=== PATIENT | male | born 1935 | race Caucasian/White ===

== ENCOUNTER 2019-04-09 08:14 | Day surgery (SDC) | payer OTHER ==
[2019-04-07 16:31] LABS: Absolute Lymphocytes (CBC) 0.7 K/uL (0.7-4.9); Basophils % 0.6 % (0-1.3); Eosinophils % 2.2 % (0-4.4); Hematocrit 41.4 % (39.6-49.0); Lymphocytes % 16.8 % (15.3-44.8); MPV 10.5 fL (7.6-11.3); Monocytes % 12.1 % (3.3-12.3); RBC Red Blood Cell Count 4.42 M/uL (4.33-5.43)
[2019-04-07 16:40] LABS: Potassium 3.7 mmol/L (3.5-5.1)
--- NOTE | 2019-04-07 17:32 | RAD REPORT ---
EXAM DESCRIPTION: RAD - Chest Pa And Lat (2 Views) - 04/07/2019 4:42 pm CLINICAL HISTORY: Preop chest examination, pending left groin hernia repair, history of coronary art emanuel stents, history of colon cancer COMPARISON: October 2013 TECHNIQUE: PA and lateral views of the chest were obtained. FINDINGS: The lungs are clear. No focal lung parenchymal process seen. Interstitial markings are si milar to the comparison study. Heart size is normal and central vasculature is within normal limits. No pleural effusion or pneumothorax seen. No acute bony finding noted. No aortic abnormality. IMPRESSION: No acute cardiopulmonary process. Chest is not significantly different from 2013.
[2019-04-09] MEDS: Ringers Lactate 1,000 ML IV ONE (08:49)
[2019-04-09] MEDS ORDERED: CEFAZOLIN/SWI 1gm 1 GM/10 ML SYR ONE (08:53)
[2019-04-09] MEDS ORDERED: PROPOFOL 200 MG/20 ML VIAL IV ONE (10:09)
[2019-04-09] MEDS ORDERED: FENTANYL CITR 100 MCG/2 ML ONE (10:09)
[2019-04-09] MEDS ORDERED: LIDOCAINE 2% MPF 5 ML VIAL ONE (10:10)
[2019-04-09] MEDS ORDERED: dexAMETHasone 10 MG/ML VIAL ONE (10:10)
[2019-04-09] MEDS ORDERED: ROCURONIUM 50 MG/5 ML VIAL IV ONE (10:11)
[2019-04-09] MEDS ORDERED: GLYCOPYRROLATE 0.2 MG/ML SYR ONE (11:02)
[2019-04-09] MEDS ORDERED: KETOROLAC 30 MG/ML INJ ONE (11:34)
--- NOTE | 2019-04-09 11:36 | P.BOP ---
Preoperative diagnosis: reduciible tender left inguinal hernia Postoperative diagnosis: same Primary procedure: open repair of reducible tender left inguinal hernia with mesh Full Service Supervisor: GAMALIEL URIBE (DAIRY MANAGER) Estimated blood loss: <10cc Specimen: hernia sac Findings: indirect inguinal hernia Anesthesia: General Complications: None Transferred to: Recovery Room Condition: Good
[2019-04-09] MEDS ORDERED: Ringers Lactate 1,000 ML IV ONE (12:37)
--- NOTE | 2019-04-11 02:24 | OP ---
Date of Procedure: 04/09/2019 Surgeon: Sumeet Slade MD Vice President Consulting Services: DANITZA Coyle. Preoperative Diagnosis: Reducible tender left inguinal hernia. Postoperative Diagnosis: Reducible tender left inguinal hernia. Procedures: Open repair of reducible tender left inguinal hernia with mesh. Estimated Blood Loss: Less than 10 mL. Specimens: Hernia sac. Findings: Indirect inguinal hernia. Anesthesia: General plus local. Indications: This is a case of a male, who comes to us with a tender left inguinal hernia. The bene fits, alternatives, and risks of open repair of a tender inguinal hernia were fully explained to the patient, with the use of mesh which include, but not limited to infection, bleeding, damage to adjace nt structures as complication, chronic pain, chronic numbness down into the testicles, MA, and even d eath. Patient also understands that this may not relieve the symptoms. He may need more than one jain rgical intervention. He was also explained impression to use mesh in that region. The pros and cons of mesh placement were discussed with the patient in details. He was allowed to ask questions and t jessiey were answered to his satisfaction. After discussing the pros and cons of it, the patient did all ow me to use mesh. The area of concern was marked by me and the patient in the holding room. Description Of Procedure: Patient was brought to the operating room, placed in a position. Anesthes ia was achieved without complication. The left inguinal region was prepped and draped in a sterile f ashion including the abdominal area. The incision was made in that area. Incision was carried down t o the Amparo fascia until we met external oblique aponeurosis. That was opened in the direction of t he fibers to connect to the superficial inguinal ring. Ilioinguinal nerve, iliohypogastric nerve, pr otected behind external oblique aponeurosis. Elijah was placed around the spermatic cord. Cremaste red fibers were opened. Hernia sac was then identified, opened, content reduced, and suture ligated. Mesh plug was placed in the deep inguinal ring secured in place with VersaTack once again protectin g the vas deferens and the rest of the spermatic cord structures. The mesh sheet was placed in the f yakov of the canal securing that to the pubic tubercle, shelving edge of inguinal ligament, transversa lis fascia, and the tail looped around the spermatic cord without strangulation. The area was irriga ana maria. Hemostasis was secured. After that, I proceeded to bring the iliohypogastric nerve back into t he inguinal canal, reconstructed superficial inguinal ring and closed the external oblique aponeurosi s with 2-0 Prolene making sure the nerves are not involving the suture line. Amparo's fascia closed with 3-0 chromic and the skin was approximated. Sponge count and instrument counts were correct. Nghia bowen tolerated the procedure well. Patient was sent to recovery in stable condition. At the end of the case, testicles were in the scrotum. Disposition: Home. Activity: As tolerated. No heavy lifting. Followup: Follow up in my office in 1 week. Call for appointment, [phone]. Keep area dry for 48 h ours, then may shower. Medications: See orders. ADRIANO/ALESSANDRA Voice ID: [id number] Report ID: [id number]
== END 2019-04-09 13:55 | disposition home or self-care (01) ==
LOC: OR 08:14
PROVIDERS: ATTEND Surgery
PROC: 0YU60JZ Supplement Left Inguinal Region with Synthetic Substitute, Open Approach (ICD-10-PCS; principal; 2019-04-09 10:15)
DX: K40.90 Unilateral inguinal hernia, without obstruction or gangrene, not specified as recurrent (principal); I11.9 Hypertensive heart disease without heart failure; N40.0 Benign prostatic hyperplasia without lower urinary tract symptoms; E78.5 Hyperlipidemia, unspecified; I25.10 Atherosclerotic heart disease of native coronary artery without angina pectoris; Z79.82 Long term (current) use of aspirin; Z79.899 Other long term (current) drug therapy; Z95.5 Presence of coronary angioplasty implant and graft
CPT/HCPCS: 49505; 85025; 80048; 36415; 88302; 71046; J2704; J3010; J1100; J0690

== ENCOUNTER 2024-02-04 11:13 | Emergency (ER) | payer OTHER ==
--- OUTSIDE RECORDS SUMMARY | 2024-02-04 11:19 | XMS REPORT | Clinical Summary ---
Author Name Unknown Organization [facility] [place] Address [address] [place] [address] Care Team Providers Care Crew Team Member Name Role Phone Saran Lewis MD Unavailable [phone] Rika Murphy MD Primary Care Provider [phone] Mitchell Parker MD Unavailable [phone] Patrick Mary MD Unavailable [phone] Allergies Active Allergy Reactions Criticality Noted Date Comments Venom-Wasp High 10/27/2014 Swelling and hives Medications Medication Sig Dispensed Refills Start Date End Date Status amLODIPine (NORVASC) 5 mg tablet TAKE 1 TABLET BY MOUTH TWICE A DAY 0 05/06/2022 Active atorvastatin (LIPITOR) 20 mg tablet TAKE 1 TABLET BY MOUTH DAILY IN EVENING WITH MEAL 0 05/27/2022 Active tamsulosin (FLOMAX) 0.4 mg 24 hr capsule TAKE 1 CAPSULE BY MOUTH TWICE A DAY 0 04/09/2022 Active omeprazole (PriLOSEC) 40 MG capsule 1 CAPSULE BY MOUTH DAILY, 30 MINUTES BEFORE BREAKFAST 0 04/09/2022 Active loratadine (CLARITIN) 10 mg tablet Take 1 tablet (10 mg) by mouth daily as needed. 0 Active cyanocobalamin (VITAMIN B-12) 1000 mcg tablet 1 tablet (1,000 mcg). 0 Active ferrous gluconate (FERGON) 324 mg (38 mg elemental iron per tablet) tablet Take 1 tablet (38 mg of iron) by mouth daily with breakfast. 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 30 tablet 11 07/21/2022 Active clindamycin (Cleocin T) 1% lotionIndications:M alignant neoplasm of lower lobe, right bronchus or lung,Rash Apply topically to affected area(s) twice daily. 60 mL 3 10/04/2022 Active Additional Information Patient not taking.Reason: No longer taking, Informant: Self, Reported on 09/27/2023 fluocinonide (LIDEX) 0.05% topical solutionIndications :Malignant neoplasm of lower lobe, right bronchus or lung,Rash Apply topically to affected area(s) twice daily. 60 mL 3 10/04/2022 Active Additional Information Patient not taking.Reason: No longer taking, Informant: Self, Reported on 09/27/2023 cholecalciferol, vitamin D3, 25 mcg (1,000 unit) tablet Take 1 tablet (1,000 Units) by mouth daily. 0 Active UNABLE TO FIND 1 Dose as needed (PT WAS GIVEN MISC. CREAMS X2 FOR SKIN). Med Name: Creams from radiation 0 Active osimertinib (Tagrisso) 80 mg tab tabletIndications:M alignant neoplasm of lower lobe, right bronchus or lung Take 1 tablet (80 mg) by mouth daily. 30 tablet 11 08/06/2023 Active Active Problems Problem Noted Date Diagnosed Date Primary malignant neoplasm of right lower lobe o f lung 05/18/2023 Adenocarcinoma of right lung 07/21/2022 Cancer Staging:Clinical stage from 07/21/2022:Stage IV(cT4, cN2, cM1) - Unsigned Resolved Problems Problem Noted Date Diagnosed Date Resolved Date Neoplasm of right lower lobe of lung 05/18/2023 05/18/2023 Encounters Date Type Department Care Team Description 11/12/2023 3:00 PM PL[facility]ER [facility] Follow-Up MD Ferreira in [place] - Thoracic Medicine [facility] [address] [place] [address] Rika Murphy MD Adenocarcinoma of right lung (Primary Dx); Secondary malignant neoplasm of bone; Malignant neoplasm of lower lobe, right bronchus or lung; Advance directive discussed with patient 11/12/2023 12:00 PM PLANER HAND Ancillary Procedure MD Jhon Stout [address] [place] [address] Rika Murphy MD Malignant neoplasm of lower lobe, right bronchus or lung 11/12/2023 Travel 09/28/2023 3:15 PM PLANER HAND Telemedicine MD Ferreira in [address] [address] Rika Murphy MD Malignant neoplasm of lower lobe, right bronchus or lung (Primary Dx) 08/31/2023 Telephone MD Ferreira in [address] [address] Angelina Robles, YESENIA 08/31/2023 Orders Only MD Ferreira in [address] [address] Rika Murphy MD 08/06/2023 1:00 PM PL[facility]ER HAND Follow-Up MD Ferreira in [address] [address] Rika Murphy MD Malignant neoplasm of lower lobe, right bronchus or lung (Primary Dx) 08/06/2023 8:00 AM PLANER HAND Ancillary Procedure MD Jhon Stout [address] [place] [address] Rika Murphy MD Malignant neoplasm of lower lobe, right bronchus or lung 08/06/2023 Travel 06/20/2023 2:00 PM CDT Nutrition Clinical Nutrition For your Nutrition appointment location directions please call: Rika Murphy MD Martin, Cathy A, RD 06/20/2023 9:00 AM CDT Telemedicine MD Ferreira in [address] [address] Rika Murphy MD Adenocarcinoma of right lung (Primary Dx); Secondary malignant neoplasm of bone; Thrombocytopenia, not otherwise specified 06/20/2023 Documentation MD Jhon Stout - Radiation Oncology [address] [place] [phone] Patrick Mary MD 06/20/2023 Travel 06/19/2023 8:00 AM CDT Clinical Support MD Jhon [place] - Radiation Oncology [address] [place] [phone] Patrick Mary MD 06/19/2023 Travel 06/18/2023 Travel 06/15/2023 Travel 06/14/2023 Travel 06/13/2023 3:00 PM CDT Telemedicine MD Ferreira in [place] - Thoracic Medicine [address] [place] [address] [address] [place] [address] Rika Murphy MD Malignant neoplasm of lower lobe, right bronchus or lung (Primary Dx) 06/13/2023 11:00 AM CDT Nutrition Clinical Nutrition For your Nutrition appointment location directions please call: iRka Murphy MD Martin, Cathy A, SANTOS 06/13/2023 Travel 06/12/2023 8:00 AM CDT Clinical Support MD Jhon Stout - Radiation Oncology [address] [place] [phone] Patrick Mary MD 06/12/2023 Travel 06/11/2023 Travel 06/08/2023 Travel 06/07/2023 Travel 06/06/2023 Travel 06/05/2023 8:00 AM CDT Clinical Support MD Jhon [place] [facility] Radiation Oncology [address] [place] [phone] Patrick Mary MD 06/05/2023 Travel 06/04/2023 Travel 06/01/2023 3:00 PM CDT Telemedicine MD Ferreira in [place] - Thoracic Medicine [address] [place] [address] [address] [place] [address] Rika Murphy MD Thrombocytopenia, not otherwise specified (Primary Dx); Adenocarcinoma of right lung; Secondary malignant neoplasm of bone 06/01/2023 Travel 05/31/2023 Documentation MD Jhon [place] - Radiation Oncology [address] [place] [id number] Patrick Mary MD 05/31/2023 Travel 05/30/2023 Documentation MD Jhon [place] - Radiation Oncology [address] [place] [address] Patrick Mary MD 05/28/2023 6:15 AM CDT - 05/28/2023 11:59 PM CDT Hospital Encounter [facility] [address] [place] [address] [place] [address] Rika Murphy MD Discharge Disposition: Home 2023 2:00 PM CDT Ancillary Procedure MD Ferreira [place] - Radiation Oncology [address] [place] [address] Breanna Cadet PA Wiederhold, Lee R, MD Adenocarcinoma of right lung 2023 1:00 PM CDT Consult MD Ferreira [place] - Radiation Oncology [address] [place] [id number] Patrick Mary MD Adenocarcinoma of right lung; Secondary malignant neoplasm of bone 2023 Documentation MD Jhon [place] - Radiation Oncology [address] [place] [phone] Patrick Mary MD 2023 Documentation MD Jhon [place] - Radiation Oncology [address] [place] [phone] Patrick Mary MD 2023 Travel 05/01/2023 Orders Only MD Jhon [place] - Radiation Oncology [address] [place] [phone] Breanna Cadet PA Adenocarcinoma of right lung (Primary Dx) 04/30/2023 11:00 AM CDT Follow-Up MD Ferreira in [place] - Thoracic Medicine [address] [facility] [address] [place] [address] Rika Murphy MD Adenocarcinoma of right lung (Primary Dx); Secondary malignant neoplasm of bone; Malignant neoplasm of lower lobe, right bronchus or lung 04/30/2023 7:30 AM CDT Ancillary Procedure MD Jhon Stout [address] [facility] [address] [place] [address] Rika Murphy MD Malignant neoplasm of lower lobe, right bronchus or lung 04/30/2023 Travel 04/26/2023 Orders Only MD Ferreira in [place] - Thoracic Medicine [address] [place] [address] [address] [place] [address] Rika Murphy MD 03/21/2023 9:00 AM CDT Telemedicine MD Ferreira in [place] - Thoracic Medicine [address] [place] [address] [address] [place] [address] Rika Murphy MD Malignant neoplasm of lower lobe, right bronchus or lung (Primary Dx) after 02/04/2023 Immunizations Name Administration Dates Next Due Tetanus 09/10/2015 Surgical History Surgery Date Site/Laterality Comments KNEE SURGERY Right COLECTOMY 09/24/2000 - 09/23/2001 HERNIA REPAIR Medical History Medical History Date Comments Hypercholesterolemia Malignant neoplasm of colon 2000 Essential (primary) hypertension Family History Medical History Relation Name Comments Lung cancer Father Uterine cancer Mother Lung cancer Sister Relation Name Status Comments Father Mother Sister Social History Tobacco Use Types Packs/Day Years Used Date Smoking Tobacco: Never Smokeless Tobacco: Never Alcohol Use Standard Drinks/Week Comments Not Currently 0 (1 standard drink = 0.6 oz pur e alcohol) Sex and Gender Information Value Date Recorded Sex Assigned at Male 06/08/2022 2:05 PM CDT Gender Identity Male 06/08/2022 2:05 PM CDT Sexual Orientation Straight 06/13/2022 10 :44 AM CDT Job Start Date Occupation Industry Not on file Not on file Not on file Obstetrics History Last Filed Vital Signs Vital Sign Reading Time Taken Comments Blood Pressure 148/64 11/12/2023 2:39 PM PL[facility] Pulse 76 11/12/2023 2:39 PM PL[facility]ER HAND Temperature 36.4 C (97.5 F) 11/12/2023 2:39 PM CS T Respiratory Rate 18 11/12/2023 2:39 PM PLANER HAND Oxygen Saturation 97% 06/12/2023 8:30 AM CDT Inhaled Oxygen Concentration - - Weight 65.2 kg (143 lb 11.8 oz) 11/12/2023 2:39 PM PLANER HAND Height 171 cm (5' 7.32") 11/12/2023 12: 01 PM PLANER HAND Body Mass Index 22.3 11/12/2023 12:01 PM PLANER HAND Plan of Treatment Upcoming Encounters Date Type Department Care Team Description 02/11/2024 10:00 AM CDT Lab MD J[facility] [place] - [facility] [address] [address] Gregor Corey, MICROSTRATEGY BI DEVELOPER [address] [place] [address] 02/11/2024 11:00 AM CDT Ancillary Procedure MD Jhon Stout [address] [address] Gregor Corey, MICROSTRATEGY BI DEVELOPER [address] [place] [address] 02/11/2024 3:00 PM CDT Follow-Up MD Ferreira in [place] - Thoracic Medicine [address] [facility] [address] [place] [address] Rika Murphy MD [address] [place] [address] Health Maintenance Due Date Last Done Comments COVID-19 Vaccine (3 - Pfizer risk series) 01/04/2021 12/07/2020, 11/16/2020 Influenza Vaccine 05/25/2024 Medical Devices Implanted Type Area Arc Cutter Plasma Arc Device Identifier Shelf Expiration Date Model / Serial / Lot Acs Multilink Zeta Coronary Stent Implanted:Qty: 3 Description:Per DI MRI safet y policy, coronary stents are cleared for all [facility] 1.5T and 3T clinical scanners in Normal Mode. x3 Multi-Link Zeta Coronary Stents Acs Multilink Pixel Coroanry Stent Implanted:Qty: 2 Description:Per DI MRI safet y policy, coronary stents are cleared for all [facility] 1.5T and 3T clinical scanners in Normal Mode. x2 Multi-Link Pixel Coronary Stents Acs Multilink Zeta Coronary Stent Description:Per DI MRI safet y policy, coronary stents are cleared for all [facility] 1.5T and 3T clinical scanners in Normal Mode. x1 Multi-Link Zeta Coronary Stents Cordis Cypher Coronary Stent-01/04/2004 Implanted:2003 (Quantity not on file) / / [id number] Description:Per DI MRI safet y policy, coronary stents are cleared for all [facility] 1.5T and 3T clinical scanners in Normal Mode. Multilink [employer] [place] Chromium Coronary Stent-01/04/2004 Implanted:Qty: 1 on 01/04/2004 REF# [id number] / / [id number] Description:Per DI MRI safet y policy, coronary stents are cleared for all [facility] 1.5T and 3T clinical scanners in Normal Mode. [id number] [employer] [place] Chromium Coronary Stent Tax[employer] 2 Coronary Stent-01/11/2004 Implanted:2003 (Quantity not on file) REF# [id number] / / [id number] Description:Per DI MRI safet y policy, coronary stents are cleared for all [facility] 1.5T and 3T clinical scanners in Normal Mode. x1 [employer] 2 Coronary Stent Procedures Procedure Name Priority Date/Time Associated Diagnosis Comments PETCT F18 FDG (FLUORODEOXYGLUCOSE) WITHOUT CONTRAST Routine 11/12/2023 1:38 PM PLANER HAND Malignant neoplasm of lower lobe, right bronchus or lung .CBC Routine 11/12/2023 11:06 AM PLANER HAND Malignant neoplasm of lower lobe, right bronchus or lung MAGNESIUM LEVEL Routine 11/12/2023 11:06 AM PLANER HAND Malignant neoplasm of lower lobe, right bronchus or lung COMPREHENSIVE METABOLIC PANEL Routine 11/12/2023 11:06 AM PLANER HAND Malignant neoplasm of lower lobe, right bronchus or lung COMPLETE BLOOD COUNT W/ DIFFERENTIAL Routine 11/12/2023 11:06 AM PLANER HAND Malignant neoplasm of lower lobe, right bronchus or lung PETCT SUBSEQUENT TREATMENT STRATEGY Routine 08/06/2023 8:25 AM PLANER HAND Malignant neoplasm of lower lobe, right bronchus or lung .CBC Routine 08/06/2023 7:00 AM PLANER HAND Malignant neoplasm of lower lobe, right bronchus or lung MAGNESIUM LEVEL Routine 08/06/2023 7:00 AM PLANER HAND Malignant neoplasm of lower lobe, right bronchus or lung COMPREHENSIVE METABOLIC PANEL Routine 08/06/2023 7:00 AM PLANER HAND Malignant neoplasm of lower lobe, right bronchus or lung COMPLETE BLOOD COUNT W/ DIFFERENTIAL Routine 08/06/2023 7:00 AM PLANER HAND Malignant neoplasm of lower lobe, right bronchus or lung FRACTIONATED BILIRUBIN Routine 7:07 AM CDT Adenocarcinoma of right lung Secondary malignant neoplasm of bone Thrombocytopenia, not otherwise specified TOTAL PROTEIN Routine 06/20/2023 7:07 AM CDT Adenocarcinoma of right lung Secondary malignant neoplasm of bone Thrombocytopenia, not otherwise specified ASPARTATE AMINOTRANSFERASE Routine 06/20/2023 7:07 AM CDT Adenocarcinoma of right lung Secondary malignant neoplasm of bone Thrombocytopenia, not otherwise specified ALANINE AMINOTRANSFERASE Routine 7:07 AM CDT Adenocarcinoma of right lung Secondary malignant neoplasm of bone Thrombocytopenia, not otherwise specified ALKALINE PHOSPHATASE Routine 06/20/2023 7:07 AM CDT Adenocarcinoma of right lung Secondary malignant neoplasm of bone Thrombocytopenia, not otherwise specified ALBUMIN LEVEL Routine 06/20/2023 7:07 AM CDT Adenocarcinoma of right lung Secondary malignant neoplasm of bone Thrombocytopenia, not otherwise specified CALCIUM LEVEL Routine 06/20/2023 7:07 AM CDT Adenocarcinoma of right lung Secondary malignant neoplasm of bone Thrombocytopenia, not otherwise specified .GLOMERULAR FILTRATION RATE Routine 06/20/2023 7:07 AM CDT Adenocarcinoma of right lung Secondary malignant neoplasm of bone Thrombocytopenia, not otherwise specified SERUM CREATININE Routine 06/20/2023 7:07 AM CDT Adenocarcinoma of right lung Secondary malignant neoplasm of bone Thrombocytopenia, not otherwise specified ELECTROLYTE PANEL Routine 06/20/2023 7:0 7 AM CDT Adenocarcinoma of right lung Secondary malignant neoplasm of bone Thrombocytopenia, not otherwise specified BLOOD UREA NITROGEN Routine 06/20/2023 7 :07 AM CDT Adenocarcinoma of right lung Secondary malignant neoplasm of bone Thrombocytopenia, not otherwise specified GLUCOSE LEVEL Routine 06/20/2023 7:07 AM CDT Adenocarcinoma of right lung Secondary malignant neoplasm of bone Thrombocytopenia, not otherwise specified DIFFERENTIAL Routine 06/20/2023 7:07 AM CDT Adenocarcinoma of right lung Secondary malignant neoplasm of bone Thrombocytopenia, not otherwise specified .CBC Routine 06/20/2023 7:07 AM CDT Adenocarcinoma of right lung Secondary malignant neoplasm of bone Thrombocytopenia, not otherwise specified MAGNESIUM LEVEL Routine 06/20/2023 7:07 AM CDT Adenocarcinoma of right lung Secondary malignant neoplasm of bone Thrombocytopenia, not otherwise specified COMPREHENSIVE METABOLIC PANEL Routine 06/20/2023 7:07 AM CDT Adenocarcinoma of right lung Secondary malignant neoplasm of bone Thrombocytopenia, not otherwise specified COMPLETE BLOOD COUNT W/ DIFFERENTIAL Routine 06/20/2023 7:07 AM CDT Adenocarcinoma of right lung Secondary malignant neoplasm of bone Thrombocytopenia, not otherwise specified FRACTIONATED BILIRUBIN Routine 8:16 AM CDT Adenocarcinoma of right lung Secondary malignant neoplasm of bone TOTAL PROTEIN Routine 06/01/2023 8:16 AM CDT Adenocarcinoma of right lung Secondary malignant neoplasm of bone ASPARTATE AMINOTRANSFERASE Routine 06/01/2023 8:16 AM CDT Adenocarcinoma of right lung Secondary malignant neoplasm of bone ALANINE AMINOTRANSFERASE Routine 8:16 AM CDT Adenocarcinoma of right lung Secondary malignant neoplasm of bone ALKALINE PHOSPHATASE Routine 06/01/2023 8:16 AM CDT Adenocarcinoma of right lung Secondary malignant neoplasm of bone ALBUMIN LEVEL Routine 06/01/2023 8:16 AM CDT Adenocarcinoma of right lung Secondary malignant neoplasm of bone CALCIUM LEVEL Routine 06/01/2023 8:16 AM CDT Adenocarcinoma of right lung Secondary malignant neoplasm of bone .GLOMERULAR FILTRATION RATE Routine 06/01/2023 8:16 AM CDT Adenocarcinoma of right lung Secondary malignant neoplasm of bone SERUM CREATININE Routine 06/01/2023 8:16 AM CDT Adenocarcinoma of right lung Secondary malignant neoplasm of bone ELECTROLYTE PANEL Routine 06/01/2023 8:1 6 AM CDT Adenocarcinoma of right lung Secondary malignant neoplasm of bone BLOOD UREA NITROGEN Routine 06/01/2023 8 :16 AM CDT Adenocarcinoma of right lung Secondary malignant neoplasm of bone GLUCOSE LEVEL Routine 06/01/2023 8:16 AM CDT Adenocarcinoma of right lung Secondary malignant neoplasm of bone DIFFERENTIAL Routine 06/01/2023 8:16 AM CDT Adenocarcinoma of right lung Secondary malignant neoplasm of bone .CBC Routine 06/01/2023 8:16 AM CDT Adenocarcinoma of right lung Secondary malignant neoplasm of bone MAGNESIUM LEVEL Routine 06/01/2023 8:16 AM CDT Adenocarcinoma of right lung Secondary malignant neoplasm of bone COMPREHENSIVE METABOLIC PANEL Routine 06/01/2023 8:16 AM CDT Adenocarcinoma of right lung Secondary malignant neoplasm of bone COMPLETE BLOOD COUNT W/ DIFFERENTIAL Routine 06/01/2023 8:16 AM CDT Adenocarcinoma of right lung Secondary malignant neoplasm of bone HP LB LIQUID BIOPSY PANEL V1 INTERPRETATION AND REPORT STAT 04/30/2023 11:38 AM CDT PETCT SUBSEQUENT TREATMENT STRATEGY Routine 04/30/2023 8:40 AM CDT Malignant neoplasm of lower lobe, right bronchus or lung FRACTIONATED BILIRUBIN Routine 7:02 AM CDT Malignant neoplasm of lower lobe, right bronchus or lung TOTAL PROTEIN Routine 04/30/2023 7:02 AM CDT Malignant neoplasm of lower lobe, right bronchus or lung ASPARTATE AMINOTRANSFERASE Routine 04/30/2023 7:02 AM CDT Malignant neoplasm of lower lobe, right bronchus or lung ALANINE AMINOTRANSFERASE Routine 7:02 AM CDT Malignant neoplasm of lower lobe, right bronchus or lung ALKALINE PHOSPHATASE Routine 04/30/2023 7:02 AM CDT Malignant neoplasm of lower lobe, right bronchus or lung ALBUMIN LEVEL Routine 04/30/2023 7:02 AM CDT Malignant neoplasm of lower lobe, right bronchus or lung CALCIUM LEVEL Routine 04/30/2023 7:02 AM CDT Malignant neoplasm of lower lobe, right bronchus or lung .GLOMERULAR FILTRATION RATE Routine 04/30/2023 7:02 AM CDT Malignant neoplasm of lower lobe, right bronchus or lung SERUM CREATININE Routine 04/30/2023 7:02 AM CDT Malignant neoplasm of lower lobe, right bronchus or lung ELECTROLYTE PANEL Routine 04/30/2023 7:0 2 AM CDT Malignant neoplasm of lower lobe, right bronchus or lung BLOOD UREA NITROGEN Routine 04/30/2023 7 :02 AM CDT Malignant neoplasm of lower lobe, right bronchus or lung GLUCOSE LEVEL Routine 04/30/2023 7:02 AM CDT Malignant neoplasm of lower lobe, right bronchus or lung DIFFERENTIAL Routine 04/30/2023 7:02 AM CDT Malignant neoplasm of lower lobe, right bronchus or lung .CBC Routine 04/30/2023 7:02 AM CDT Malignant neoplasm of lower lobe, right bronchus or lung MAGNESIUM LEVEL Routine 04/30/2023 7:02 AM CDT Malignant neoplasm of lower lobe, right bronchus or lung COMPREHENSIVE METABOLIC PANEL Routine 04/30/2023 7:02 AM CDT Malignant neoplasm of lower lobe, right bronchus or lung COMPLETE BLOOD COUNT W/ DIFFERENTIAL Routine 04/30/2023 7:02 AM CDT Malignant neoplasm of lower lobe, right bronchus or lung after 02/04/2023 Results * PETCT F18 FDG (Fluorodeoxyglucose) without contrast (11/12/2023 1:38 PM PLANER HAND) Anatomical Region Laterality Modality Whole Body Positron Emissio n Tomography (PET) 11/12/2023 1:45 PM PLANER HAND Impressions 11/12/2023 2:14 PM PLANER HAND A primary right lung malignancy has decreased in size but remains FDG avid suspicious for persistent viable malignancy. There is new increased FDG uptake within a right infrahilar lymph node and there is persistent FDG uptake within a nonenlarged subcarinal lymph node and new FDG uptake within nonenlarged ipsilateral mediastinal lymph nodes raising the possibility of hollis metastases. There are no distant-extrathoracic systemic metastases. ACTIONABLE ITEMS/RECOMMENDATIONS: None. Narrative 11/12/2023 2:14 PM PLANER HAND FULL RESULT: Examination: FDG PET/CT, 11/12/2023 1:38 PM Clinical History: Malignant neoplasm of lower lobe, right bronchus or lung. Indication: To determine response to therapy and subsequent treatment strategy. Restaging. Comparison: PET/CT 04/05/2023. Technique: Following intravenous administration of 9.6 mCi F-18 fluorodeoxyglucose (FDG), a CT attenuation corrected PET scan was obtained from the vertex to the thighs. Findings: Chest: 1. A 3 cm FDG avid (SUV max 7.4) nodule in the right lower lobe (image 135) consistent with residua of a treated primary lung malignancy has decreased in size and FDG uptake (previously 3.5 cm, SUV max 9.8). There has been an increase multisegmental poorly marginated consolidative opacities in the right lung consistent with sequelae of radiation therapy. 2. There are no discrete lung nodules suspicious for metastases. 3. There is a 1 cm left infrahilar lymph node that has increased in size and has developed increased FDG uptake (SUV max 11.4). There is persistent low-grade increased FDG uptake in a nonenlarged subcarinal lymph node (SUV max 4.1, previously 3.7). There are ipsilateral mediastinal lower and upper paratracheal lymph nodes that have increased slightly in size and have developed low-grade increased FDG uptake. For instance, an 8 mm right lower paratracheal lymph node has a SUV max of 4.4 (previously 5 mm, SUV max 2.5). There are no enlarged or FDG avid extrathoracic lymph nodes. 4. There is a small right pleural effusion has increased slightly in volume. 5. There is coronary artery calcification consistent with sequelae of atherosclerosis. Abdomen and Pelvis: 6. FDG uptake in the liver and spleen is physiologic. There are low-attenuation hepatic lesions that are unchanged and consistent with cysts. 7. A left adrenal nodule is unchanged in size and is not FDG avid and is consistent with a benign etiology. The right adrenal is normal. Musculoskeletal: 8. There are no FDG avid osseus metastases. Procedure Note Arturo James MD - 11/12/2023 FULL RESULT: Examination: FDG PET/CT, 11/12/2023 1:38 PM Clinical History: Malignant neoplasm of lower lobe, right bronchus orlung. Indication: To determine response to therapy and subsequent treatmentstrategy. Restaging. Comparison: PET/CT 04/05/2023. Technique: Following intravenous administration of 9.6 mCi F- 18fluorodeoxyglucose (FDG), a CT attenuation corrected PET scan was obtainedfrom the vertex to the thighs. Findings: Chest: 1. A 3 cm FDG avid (SUV max 7.4) nodule in the right lower lobe () consistent with residua of a treated primary lung malignancy hasdecreased in size and FDG uptake (previously 3.5 cm, SUV max 9.8). Therehas been an increase multisegmental poorly marginated consolidativeopacities in the right lung consistent with sequelae of radiationtherapy. 2. There are no discrete lung nodules suspicious for metastases. 3. There is a 1 cm left infrahilar lymph node that has increased in sizeand has developed increased FDG uptake (SUV max 11.4). There is persistentlow-grade increased FDG uptake in a nonenlarged subcarinal lymph node (SUVmax 4.1, previously 3.7). There are ipsilateral mediastinal lower andupper paratracheal lymph nodes that have increased slightly in size andhave developed low-grade increased FDG uptake. For instance, an 8 mm rightlower paratracheal lymph node has a SUV max of 4.4 (previously 5 mm, SUVmax 2.5). There are no enlarged or FDG avid extrathoracic lymph nodes. 4. There is a small right pleural effusion has increased slightly involume. 5. There is coronary artery calcification consistent with sequelae ofatherosclerosis. Abdomen and Pelvis: 6. FDG uptake in the liver and spleen is physiologic. There arelow-attenuation hepatic lesions that are unchanged and consistent withcysts. 7. A left adrenal nodule is unchanged in size and is not FDG avid and isconsistent with a benign etiology. The right adrenal is normal. Musculoskeletal: 8. There are no FDG avid osseus metastases. IMPRESSION: A primary right lung malignancy has decreased in size but remains FDG avidsuspicious for persistent viable malignancy. There is new increased FDGuptake within a right infrahilar lymph node and there is persistent FDGuptake within a nonenlarged subcarinal lymph node and new FDG uptakewithin nonenlarged ipsilateral mediastinal lymph nodes raising thepossibility of hollis metastases. There are no distant-extrathoracicsystemic metastases. ACTIONABLE ITEMS/RECOMMENDATIONS: None. Rika Murphy MD IMG PETCT ORDERABLES * (ABNORMAL) .CBC (11/12/2023 11:06 AM [facility]) Only the most recent of5 resultswithin the time period is included. White Blood Cell 4.8 4.1 - 10.5 K/uL 11/12/2023 11:12 AM [facility] Red Blood Cell 3.50(L) 4.30 - 6.04 M/uL 11/12/2023 11:12 AM [facility] Hemoglobin 11.5(L) 13.3 - 17.4 g/dL 11/12/2023 11:12 AM [facility] Hematocrit 34.8(L) 39.5 - 51.8 % 11/12/2023 11:12 AM [facility] Mean Cell Volume 99 82 - 99 fL 11/12/2023 11:12 AM [facility] Mean Cell Hemoglobin 32.9 26.6 - 33.2 pg 11/12/2023 11:12 AM [facility] Mean Cell Hemoglobin Concentration 33.0 31.1 - 35.2 g/dL 11/12/2023 11:12 AM [facility] RDW-SD 57.3(H) 37.5 - 49.7 fL 11/12/2023 11:12 AM [facility] Red Cell Diameter Width 15.3 11.6 - 15.5 % 11/12/2023 11:12 AM [facility] Platelet 86(L) 160 - 397 K/uL 11/12/2023 11:12 AM [facility] Mean Platelet Volume 11.7 9.1 - 12.6 fL 11/12/2023 11:12 AM [facility] Neutrophil % 71.7 43.2 - 72.7 % 11/12/2023 11:12 AM [facility] Lymphocyte % 13.5(L) 16.8 - 46.2 % 11/12/2023 11:12 AM [facility] Monocyte % 11.9 5.1 - 12.5 % 11/12/2023 11:12 AM [facility] Eosinophil % 2.5 0.4 - 6.3 % 11/12/2023 11:12 AM [facility] Basophil % 0.2 0.2 - 1.4 % 11/12/2023 11:12 AM [facility] IGRE % 0.2 0.1 - 1.5 % 11/12/2023 11:12 AM [facility] Comment:The IGRE% includes M etamyelocytes, Myelocytes and Promyelocytes. Neutrophil Abs 3.44 1.95 - 7.25 K/uL 11/12/2023 11:12 AM [facility] Lymphocyte Abs 0.65(L) 1.01 - 3.24 K/uL 11/12/2023 11:12 AM [facility] Monocyte Abs 0.57 0.24 - 0.85 K/uL 11/12/2023 11:12 AM [facility] Eosinophil Abs 0.12 0.02 - 0.50 K/uL 11/12/2023 11:12 AM [facility] Basophil Abs 0.01(L) 0.02 - 0.09 K/uL 11/12/2023 11:12 AM [facility] IG Abs 0.01 0.01 - 0.12 K/uL 11/12/2023 11:12 AM [facility] Blood Peripheral blood specimen / Unknown Venipuncture / Unknown 11/12/2023 11:06 AM [facility] 11/12/2023 11:06 AM [facility] Rika Murphy MD LAB BLOOD ORDERABLES [place] [facility] [place] [address] [facility], [facility] [address] [place] [address] * (ABNORMAL) Comprehensive Metabolic Panel (11/12/2023 11:06 AM [facility]) Only the most recent of2 resultswithin the time period is included. Bilirubin Total 0.6 <=1.2 mg/dL 11/12/2023 11:28 AM [facility] Comment:Indocyanine Green (I CG) may cause falsely elevated bilirubin results. Total and direct bilirubin must not be measured from samples containing indocyanine green. False elevation of total bilirubin can be seen in patients with IgG concentrations above 28 g/L. Bilirubin Direct 0.2 <=0.3 mg/dL 11/12/2023 11:28 AM [facility] Comment:Indocyanine Green (I CG) may cause falsely elevated bilirubin results. Total and direct bilirubin must not be measured from samples containing indocyanine green. Bilirubin Indirect 0.4 0.0 - 0.9 mg/dL 11/12/2023 11:28 AM [facility] eGFR 84 >=60 mL/min/1. 73 sq. m 11/12/2023 11:28 AM [facility] Comment: The eGFRcr is calculated with the 2020 CKD-EPI creatinine equation using creatinine, patient's age, and sex for adults 18 years of age and older. Other factors, especially muscle mass, may affect accuracy and need to be considered. According to the Kidney Disease: Improving Global Outcomes (KDIGO) CKD Work Group 2012 Clinical Practice Guideline, chronic kidney disease (CKD) is defined as the abnormalities of kidney structure or function, present for more than 3 months, with implications for health. CKD should be classified by cause, GFR category, and albuminuria category. KDIGO guidelines provide the following GFR categories. Stage / Description / GFR mL/min/1.73 m2: G1* / Normal or high / >= 90 G2* / Mildly decreased / 60-89 G3a / Mildly to moderately decreased / 45-59 G3b / Moderately to severely decreased / 30-44 G4 / Severely decreased / 15-29 G5 / Kidney failure / <15 *In the absence of evidence of kidney damage, neither G1 nor G2 fulfill criteria for CKD. Tot Protein 7.7 6.4 - 8.3 gm/dL 11/12/2023 11:28 AM [facility] Calcium Level Total 9.7 8.2 - 10.2 mg/dL 11/12/2023 11:28 AM [facility] Alkaline Phosphatase 116 40 - 129 U/L 11/12/2023 11:28 AM [facility] Albumin Level 3.7 3.5 - 5.2 gm/dL 11/12/2023 11:28 AM [facility] AST 27 <=40 U/L 11/12/2023 11:28 AM [facility] ALT 19 <=41 U/L 11/12/2023 11:28 AM [facility] Sodium Level 137 136 - 145 mmol/L 11/12/2023 11:28 AM [facility] Potassium Level 4.3 3.4 - 4.5 mmol/L 11/12/2023 11:28 AM [facility] Chloride 100 98 - 107 mmol/L 11/12/2023 11:28 AM [facility] CO2 27 22 - 29 mmol/L 11/12/2023 11:28 AM [facility] Anion Gap 10 4 - 14 mmol/L 11/12/2023 11:28 AM [facility] Creatinine 0.81 0.67 - 1.17 mg/dL 11/12/2023 11:28 AM [facility] BUN 15 6 - 23 mg/dL 11/12/2023 11:28 AM [facility] Glucose Level 103(H) 70 - 99 mg/dL 11/12/2023 11:28 AM [facility] Comment: Effective 04/19/16, the glucose reference intervals have been updated based on [place] [employer] guidelines (Standards of Medical Care in Diabetes 2016. Diabetes Care 2016; 39: S13-S22). Fasting blood glucose: Normal: 70-99 mg/dL Impaired fasting glucose (increased risk for diabetes or pre-diabetes): 100-125 mg/dL Diabetes mellitus: >/=126 mg/dL Random blood glucose: Normal: 70-199 mg/dL Note: Random glucose >100 mg/dL is associated with increased risk for diabetes. Blood Peripheral blood specimen / Unknown Venipuncture / Unknown 11/12/2023 11:06 AM [facility] 11/12/2023 11:06 AM [facility] Rika Murphy MD LAB BLOOD ORDERABLES Performing Organization Address City/[facility] Co de Phone Number [address], [facility] [address] [place] [address] * Magnesium Level (11/12/2023 11:06 AM [facility]) Only the most recent of5 resultswithin the time period is included. Magnesium Level 1.8 1.6 - 2.6 mg/dL 11/12/2023 11:28 AM [facility] Blood Peripheral blood specimen / Unknown Venipuncture / Unknown 11/12/2023 11:06 AM [facility] 11/12/2023 11:06 AM [facility] Rika Murphy MD LAB BLOOD ORDERABLES Performing Organization Address City/[facility] Co de Phone Number [address], [facility] [address] [place] [address] * PETCT Subsequent Treatment Strategy (08/06/2023 8:25 AM [facility]) Only the most recent of2 resultswithin the time period is included. Anatomical Region Laterality Modality Whole Body Positron Emissio n Tomography (PET) 08/06/2023 8:37 AM [facility] Impressions 08/06/2023 9:05 AM [facility] A primary right lung malignancy has decreased in size but remains FDG avid consistent with persistent viable malignancy. Low-grade FDG uptake within a nonenlarged subcarinal lymph node has not changed significantly in the interval and is most likely inflammatory. There are no distant-extrathoracic systemic metastases. ACTIONABLE ITEMS/RECOMMENDATIONS: None. Narrative 08/06/2023 9:05 AM [facility] FULL RESULT: Examination: FDG PET/CT, 08/06/2023 8:25 AM Clinical History: Malignant neoplasm of lower lobe, right bronchus or lung. Indication: To determine response to therapy and subsequent treatment strategy. Restaging. Comparison: PET/CT 04/30/2023. Technique: Following intravenous administration of 9.3 mCi F-18 fluorodeoxyglucose (FDG), a CT attenuation corrected PET scan was obtained from the vertex to the thighs. Findings: Chest: 1. A 3.5 cm mass in the right lower lobe (image 118) consistent with a primary lung malignancy has decreased in size (previously 4.5 cm) and remains FDG avid (SUV max 9.8, previously 12.8). There are new multisegmental poorly marginated focal soft tissue and ground glass opacities in the right lung consistent with sequelae of radiation therapy. 2. There are no discrete lung nodules suspicious for metastases. 3. There is a 1 cm subcarinal lymph node that is unchanged in size and has low- grade FDG uptake (SUV max 3.7, previously 3.5). There are no enlarged or FDG avid extrathoracic lymph nodes. 4. There is a minimal loculated right pleural effusion adjacent to the mass that is unchanged in volume. 5. There is coronary artery calcification consistent with sequelae of atherosclerosis. Abdomen and Pelvis: 6. FDG uptake in the liver and spleen is physiologic. There are low-attenuation hepatic lesions that are unchanged and consistent with cysts. 7. A 2.5 cm left adrenal nodule is unchanged in size and is not FDG avid and is consistent with a benign etiology. 8. There is a right inguinal hernia. Musculoskeletal: 9. There are no FDG avid osseus metastases. Procedure Note Arturo James MD - 08/06/2023 FULL RESULT: Examination: FDG PET/CT, 08/06/2023 8:25 AM Clinical History: Malignant neoplasm of lower lobe, right bronchus orlung. Indication: To determine response to therapy and subsequent treatmentstrategy. Restaging. Comparison: PET/CT 04/30/2023. Technique: Following intravenous administration of 9.3 mCi F- 18fluorodeoxyglucose (FDG), a CT attenuation corrected PET scan was obtainedfrom the vertex to the thighs. Findings: Chest: 1. A 3.5 cm mass in the right lower lobe (image 118) consistent with aprimary lung malignancy has decreased in size (previously 4.5 cm) andremains FDG avid (SUV max 9.8, previously 12.8). There are newmultisegmental poorly marginated focal soft tissue and ground glassopacities in the right lung consistent with sequelae of radiationtherapy. 2. There are no discrete lung nodules suspicious for metastases. 3. There is a 1 cm subcarinal lymph node that is unchanged in size and haslow- grade FDG uptake (SUV max 3.7, previously 3.5). There are no enlargedor FDG avid extrathoracic lymph nodes. 4. There is a minimal loculated right pleural effusion adjacent to themass that is unchanged in volume. 5. There is coronary artery calcification consistent with sequelae ofatherosclerosis. Abdomen and Pelvis: 6. FDG uptake in the liver and spleen is physiologic. There arelow-attenuation hepatic lesions that are unchanged and consistent withcysts. 7. A 2.5 cm left adrenal nodule is unchanged in size and is not FDG avidand is consistent with a benign etiology. 8. There is a right inguinal hernia. Musculoskeletal: 9. There are no FDG avid osseus metastases. IMPRESSION: A primary right lung malignancy has decreased in size but remains FDG avidconsistent with persistent viable malignancy. Low-grade FDG uptake withina nonenlarged subcarinal lymph node has not changed significantly in theinterval and is most likely inflammatory. There are nodistant-extrathoracic systemic metastases. ACTIONABLE ITEMS/RECOMMENDATIONS: None. Rika Murphy MD IMG PETCT ORDERABLES * .Serum Creatinine (06/20/2023 7:07 AM CDT) Only the most recent of3 resultswithin the time period is included. Creatinine 0.88 0.67 - 1.17 mg/dL [place] Comment:Testing performed at [facility] [place], [facility] [facility], [place] [address] Blood 06/20/2023 7:07 AM CDT 06/20/2023 7:08 AM CDT [facility] - 06/20/2023 7:32 AM CDT Labwork at [place]. Rika Murphy MD LAB BLOOD ORDERABLES [place] [id number] [place] [address] * Glomerular Filtration Rate (06/20/2023 7:07 AM CDT) Only the most recent of3 resultswithin the time period is included. eGFR 82 >=60 mL/min/1.7 3 sq. m [place] Comment: The eGFRcr is calculated with the 2020 CKD-EPI creatinine equation using creatinine, patient's age, and sex for adults 18 years of age and older. Other factors, especially muscle mass, may affect accuracy and need to be considered. According to the Kidney Disease: Improving Global Outcomes (KDIGO) CKD Work Group 2012 Clinical Practice Guideline, chronic kidney disease (CKD) is defined as the abnormalities of kidney structure or function, present for more than 3 months, with implications for health. CKD should be classified by cause, GFR category, and albuminuria category. KDIGO guidelines provide the following GFR categories Stage Description GFR mL/min/1.73 m2 G1* Normal or high >= 90 G2* Mildly decreased 60-89 G3a Mildly to moderately decreased 45-59 G3b Moderately to severely decreased 30-44 G4 Severely decreased 15-29 G5 Kidney failure <15 *In the absence of evidence of kidney damage, neither G1 nor G2 fulfill criteria for CKD. Testing performed at [facility], [address] [place] [phone] Blood 06/20/2023 7:07 AM CDT 06/20/2023 7:08 AM CDT Narrative [place] - 06/20/2023 7:32 AM CDT Labwork at [place]. Rika Murphy MD LAB BLOOD ORDERABLES [address], [facility] [address] [place] [address] * Fractionated Bilirubin (06/20/2023 7:07 AM CDT) Only the most recent of3 resultswithin the time period is included. [facility] Bili Total 0.7 <=1.2 mg/dL [place] Comment: Indocyanine Green (ICG) may cause falsely elevated bilirubin results. Total and direct bilirubin must not be measured from samples containing indocyanine green. False elevation of total bilirubin can be seen in patients with IgG concentrations above 28 g/L. Testing performed at [facility], [address] [place] [id number] Bili Direct 0.2 <=0.3 mg/dL [place] Comment: Indocyanine Green (ICG) may cause falsely elevated bilirubin results. Total and direct bilirubin must not be measured from samples containing indocyanine green. Testing performed at [facility], [address] [place] [address] Bili Indirect 0.5 0.0 - 0.9 mg/dL [place] Comment:Testing performed at [facility], [address] [place] [id number] Blood 06/20/2023 7:07 AM CDT 06/20/2023 7:08 AM CDT Narrative [place] - 06/20/2023 7:32 AM CDT Labwork at [place]. Rika Murphy MD LAB BLOOD ORDERABLES Performing Organization Address City/State/[facility] Co de Phone Number [address], [facility] [address] [place] [address] * (ABNORMAL) Differential (06/20/2023 7:07 AM CDT) Only the most recent of3 resultswithin the time period is included. [facility] Neutrophil % 73.6(H) 43.2 - 72.7 % [place] Comment:All components of th e Differential performed at [facility], [address] [place] [address] Lymphocyte % 8.7(L) 16.8 - 46.2 % [place] Comment:As part of the Diffe rential testing performed at [facility], [address] [place] [address] Monocyte % 15.0(H) 5.1 - 12.5 % [place] Comment:As part of the Diffe rential testing performed at [facility], [address] [place] [address], [place] [address] Eosinophil % 2.0 0.4 - 6.3 % [place] Comment:As part of the Diffe rential testing performed at [facility], [address] [place] [address], [place] [address] Basophil % 0.5 0.2 - 1.4 % [place] Comment:As part of the Diffe rential testing performed at [facility], [address] [place] [address], [place] [address] IGRE % 0.2 0.1 - 1.5 % [place] Comment: IGRE % count includes Metamyelocytes, Myelocytes, and Promyelocytes. As part of the Differential testing performed at [facility], [address] [place] [address], [place] [address] Neutrophil Abs 2.95 1.95 - 7.25 K/uL [place] Comment:As part of the Diffe rential testing performed at [facility], [address] [place] [address] Lymphocyte Abs 0.35(L) 1.01 - 3.24 K/uL [place] Comment:As part of the Diffe rential testing performed at [facility], [address] [place] [address], [place] [address] Monocyte Abs 0.60 0.24 - 0.85 K/uL [place] Comment:As part of the Diffe rential testing performed at [facility], [address] [place] [address] Eosinophil Abs 0.08 0.02 - 0.50 K/uL [place] Comment:As part of the Diffe rential testing performed at [facility], [address] [place] [address] Basophil Abs 0.02 0.02 - 0.09 K/uL [place] Comment:As part of the Diffe rential testing performed at [facility], [address] [place] [address] IG Abs 0.01 0.01 - 0.12 K/uL [place] Comment:As part of the Diffe rential testing performed at [facility], [address] [place] [id number] Blood 06/20/2023 7:07 AM CDT 06/20/2023 7:08 AM CDT [facility] - 06/20/2023 7:14 AM CDT Labwork at [place]. Rika Murphy MD LAB BLOOD ORDERABLES [place] [address] [place] [address] * BUN (06/20/2023 7:07 AM CDT) Only the most recent of3 resultswithin the time period is included. BUN 23 6 - 23 mg/dL [place] Comment:Testing performed at [facility], [address] [place] [id number] Blood 06/20/2023 7:07 AM CDT 06/20/2023 7:08 AM CDT [facility] - 06/20/2023 7:32 AM CDT Labwork at [place]. Rika Murphy MD LAB BLOOD ORDERABLES [place] [address] [place] [address] * ALT (06/20/2023 7:07 AM CDT) Only the most recent of3 resultswithin the time period is included. ALT 28 <=41 U/L [place] Comment:Testing performed at [facility], [address] [place] [id number] Blood 06/20/2023 7:07 AM CDT 06/20/2023 7:08 AM CDT [facility] - 06/20/2023 7:32 AM CDT Labwork at [place]. Rika Murphy MD LAB BLOOD ORDERABLES [address], [address] [address] * Aspartate Aminotransferase (06/20/2023 7:07 AM CDT) Only the most recent of3 resultswithin the time period is included. Pathologist [facility] AST 37 <=40 U/L [place] Comment:Testing performed at [facility], [address] [place] [id number] Blood 06/20/2023 7:07 AM CDT 06/20/2023 7:08 AM CDT [facility] - 06/20/2023 7:32 AM CDT Labwork at [place]. Rika Murphy MD LAB BLOOD ORDERABLES [address], [place] [id number] [place] [address] * Total Protein (06/20/2023 7:07 AM CDT) Only the most recent of3 resultswithin the time period is included. [facility] Total Protein 7.5 6.4 - 8.3 g/dL [place] Comment:Testing performed at [facility], [address] [place] [id number] Blood 06/20/2023 7:07 AM CDT 06/20/2023 7:08 AM CDT [facility] - 06/20/2023 7:32 AM CDT Labwork at [place]. Rika Murphy MD LAB BLOOD ORDERABLES [address], [address] [address] * Alkaline Phosphatase (06/20/2023 7:07 AM CDT) Only the most recent of3 resultswithin the time period is included. Alk Phos 85 40 - 129 U/L [place] Comment:Testing performed at [facility], [address] [place] [phone] Blood 06/20/2023 7:07 AM CDT 06/20/2023 7:08 AM CDT Narrative [place] - 06/20/2023 7:32 AM CDT Labwork at [place]. Rika Murphy MD LAB BLOOD ORDERABLES [place] [address] [place] [address] * (ABNORMAL) Glucose Level (06/20/2023 7:07 AM CDT) Only the most recent of3 resultswithin the time period is included. Glucose Level 105(H) 70 - 99 mg/dL [place] Comment: Effective 04/19/16, the glucose reference intervals have been updated based on [place] [employer] guidelines (Standards of Medical Care in Diabetes 2016. Diabetes Care 2016; 39: S13-S22). Fasting blood glucose: Normal: 70-99 mg/dL Impaired fasting glucose (increased risk for diabetes or pre-diabetes): 100- 125 mg/dL Diabetes mellitus: >/=126 mg/dL Random blood glucose: Normal: 70-199 mg/dL Note: Random glucose >100 mg/dL is associated with increased risk for diabetes Testing performed at [facility], [address] [place] [phone] Blood 06/20/2023 7:07 AM CDT 06/20/2023 7:08 AM CDT Narrative [place] - 06/20/2023 7:32 AM CDT Labwork at [place]. Rika Murphy MD LAB BLOOD ORDERABLES [place] [address], [place] [id number] [place] [address] * Calcium Level (06/20/2023 7:07 AM CDT) Only the most recent of3 resultswithin the time period is included. Calcium Lvl 9.8 8.4 - 10.2 mg/dL [place] Comment:Testing performed at [facility], [address] [place] [address] Blood 06/20/2023 7:07 AM CDT 06/20/2023 7:08 AM CDT [facility] - 06/20/2023 7:32 AM CDT Labwork at [place]. Rika Murphy MD LAB BLOOD ORDERABLES [address] [address] * Albumin Level (06/20/2023 7:07 AM CDT) Only the most recent of3 resultswithin the time period is included. Albumin Lvl 4.1 3.5 - 5.2 gm/dL [place] Comment:Testing performed at [facility], [address] [place] [id number] Blood 06/20/2023 7:07 AM CDT 06/20/2023 7:08 AM CDT [facility] - 06/20/2023 7:32 AM CDT Labwork at [place]. Rika Murphy MD LAB BLOOD ORDERABLES [address] [address] * Electrolyte Panel (06/20/2023 7:07 AM CDT) Only the most recent of3 resultswithin the time period is included. Sodium Lvl 140 136 - 145 mEq/L [place] Comment:Testing performed at [facility], [address] [place] [address] Potassium Lvl 3.9 3.5 - 5.1 mEq/L [place] Comment:Testing performed at [facility], [address] [place] [address] Chloride 104 98 - 107 mEq/L [place] Comment:Testing performed at [facility], [address] [place] [address] CO2 28 22 - 29 mEq/L [place] Comment:Testing performed at [facility], [address] [place] [address] Anion Gap 8 4 - 14 mEq/L [place] Comment:Testing performed at [facility], [address] [place] [id number] Blood 06/20/2023 7:07 AM CDT 06/20/2023 7:08 AM CDT Narrative [place] - 06/20/2023 7:32 AM CDT Labwork at [place]. Rika Murphy MD LAB BLOOD ORDERABLES [address], [facility] [address] [place] [id number] * LB Liquid Biopsy Panel V1 Interpretation and Report (04/30/2023 11:38 AM CDT) 04/30/2023 11:3 8 AM CDT Rika Murphy MD, MDA [facility] Unless otherwise noted, all lab tests performed by: Division of Pathology and Laboratory Medicine [address] [place] [id number] after 02/04/2023 Care Teams Crew Team Member Relationship Specialty Start Date End Date Saran Lewis MD [address] [place] [phone] PCP - External Referring Internal Medicine 05/30/22 Rika Murphy MD [address] [place] [phone] PCP - General Medical Oncology 05/30/22 Mitchell Parker MD [address] [place] [address] [phone] Cardiology 06/02/22 [place] [address] [place] [address] [phone] Physician Radiation Oncology 05/16/23
[2024-02-04 11:31] LABS: Absolute Lymphocytes (CBC) 0.2 K/uL (0.7-4.9); Absolute Monocytes 0.6 K/uL (0.1-1.3); Absolute Neutrophil 6.3 K/uL (1.8-8.0); Basophils % 0.1 % (0-1.3); Eosinophils % 0.1 % (0-4.4); Hematocrit 28.1 % (39.6-49.0); Hemoglobin 9.5 g/dL (13.6-17.9); Lymphocytes % 2.2 % (15.3-44.8); MCH 33.1 pg (27.0-35.0); MCHC 33.7 g/dL (32.0-36.0); MCV 98.4 fL (80-100); MPV 9.6 fL (7.6-11.3); Monocytes % 8.8 % (3.3-12.3); Neutrophils % 88.8 % (41.7-73.7); Platelets 65 thou/uL (152-406); RBC Red Blood Cell Count 2.85 M/uL (4.33-5.43); Red Cell Distribution Width 15.8 % (12.1-15.2)
[2024-02-04 11:37] LABS: PT Prothrombin Time 14.4 SECONDS (9.5-12.5); Protime INR 1.32
--- NOTE | 2024-02-04 11:42 | RAD REPORT ---
EXAM DESCRIPTION: CT - Head angio - 02/04/2024 11:28 am CLINICAL HISTORY: STROKE ALERT COMPARISON: Ct Stroke Brain Wo Cont dated 02/04/2024; Neck Angio dated 02/04/2024 TECHNIQUE: Axial CT angiography images of the head was performed with multiplanar and maximum intens ity projection reconstructions. Images performed following intravenous administration of 75mL Isovue 370. All CT scans are performed using dose optimization technique as appropriate and may include automated exposure control or mA/KV adjustment according to patient size. FINDINGS: Complete occlusion of the middle branch of the left MCA, within the sylvian fissure (M2 se gment occlusion). See series 510 image 137 among others. Remainder of the anterior circulation proxim al vessels and the posterior circulation proximal vessels are patent. No evidence of aneurysm or diss ection flap is detected. No flow-limiting stenosis or vascular malformation identified. Antegrade flow is seen in the vertebral arteries. The vertebral arteries are codominant. The visualized dural venous sinuses are grossly patent. 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 The findings were communicated to Reynaldo Valdez on 02/04/2024 at 11:35 hours.
--- NOTE | 2024-02-04 11:42 | RAD REPORT ---
EXAM DESCRIPTION: CT - Ct Stroke Brain Wo Cont - 02/04/2024 11:28 am CLINICAL HISTORY: STROKE ALERT COMPARISON: Neck Angio dated 02/04/2024; Head angio dated 02/04/2024 TECHNIQUE: Noncontrast head CT images were obtained without IV contrast. Multiplanar reformats were generated and reviewed. All CT scans are performed using dose optimization technique as appropriate and may include automated exposure control or mA/KV adjustment according to patient size. FINDINGS: No intracranial hemorrhage, mass, or edema. Midline structures are unremarkable. Normal ventricular caliber for age. Modi-white matter differentiation is preserved, without evidence of acute infarct. No abnormal extra- axial fluid collections. Mild periventricular and deep white matter hypodensities, nonspecific, most suggestive of chronic small vessel ischemic changes. Mastoid air cells and visualized portions of the paranasal sinuses are clear. No acute bony findings. IMPRESSION: No evidence of an acute intracranial process. The findings were communicated to Reynaldo Valdez on 02/04/2024 at 11:22 hours.
[2024-02-04 11:51] LABS: Albumin 2.7 g/dL (3.4-5.0); Albumin/Globulin Ratio 0.8 (1.1-1.8); Anion Gap 7.8 mEq/L (5.0-15.0); Bilirubin Direct 0.3 mg/dL (0-0.2); Bilirubin Indirect, Calculated 0.6 mg/dL (0.2-0.8); Bilirubin Total 0.9 mg/dL (0.2-1.0); Globulin 3.5 g/dL (2.3-3.5); Magnesium 1.8 mg/dL (1.6-2.4); Potassium 3.8 mEq/L (3.5-5.1); Protein, Total 6.2 g/dL (6.4-8.2)
--- NOTE | 2024-02-04 11:51 | RAD REPORT ---
EXAM DESCRIPTION: CT - Neck Angio - 02/04/2024 11:28 am CLINICAL HISTORY: right sided weaknes COMPARISON: Head angio dated 02/04/2024; Ct Stroke Brain Wo Cont dated 02/04/2024 TECHNIQUE: Axial CT angiography images of the neck was performed with multiplanar and maximum intens ity projection reconstructions. Images performed following intravenous administration of 75mL Isovue 370. All CT scans are performed using dose optimization technique as appropriate and may include automated exposure control or mA/KV adjustment according to patient size. Quantification of carotid stenosis, if any, is performed according to NASCET criteria. FINDINGS: A left aortic arch is identified with normal three vessel configuration of the great vesse ls. No significant flow abnormality is seen of the common carotid bilaterally. Evaluation is however laureano ited by dense streak artifact resulting from dense venous contrast, along the proximal left common ca rotid and subclavian arteries and the right innominate artery. Bilateral moderate calcific atherosclerotic plaque at the bulbs. No significant stenosis on the left. Luminal narrowing at the origin of the right ICA, measuring 1.8 mm at the narrowest, compared to 4.6 mm distally, amounting to 61% stenosis. Normal flow is seen within both vertebral arteries. IMPRESSION: Up to 61% stenosis at the origin of the right ICA. Less than 50% stenosis at the origin of the left ICA. Vertebral arteries are patent. CAROTID STENOSIS REFERENCE USING NASCET CRITERIA: % ICA stenosis = (1 - narrowest ICA diameter/diameter of distal cervical ICA) x 100. Mild - <50% stenosis. Moderate - 50-69% stenosis. Severe - 70-94% stenosis. Near occlusion - 95-99% stenosis. Occluded - 100% stenosis.
--- NOTE | 2024-02-04 11:52 | ER ---
Nurse's Notes [facility] Name: Jaswant Dove Age: 88 yrs Sex: Male : 1935 Arrival Date: 02/04/2024 Time: 11:13 Bed 13 [facility] MD: Diagnosis: Ischemic Stroke- M2 occlusion Presentation: 02/03 11:15 Chief complaint: EMS states: Pt from home, last seen normal yesterday at 1330, ot ph states that he woke up between 2 and 4 am w/ generalized weakness and trouble walking, had multiple falls, skin tears to bilateral upper arms, VSS, BGL 181, 18G to LFA. Coronavirus screen: Vaccine status: Patient reports receiving the 2nd dose of the covid vaccine. Ebola Screen: No symptoms or risks identified at this time. Initial Sepsis Screen: Does the patient meet any 2 criteria? No. Patient's initial sepsis screen is negative. Does the patient have a suspected source of infection? No. Patient's initial sepsis screen is negative. Risk Assessment: Do you want to hurt yourself or someone else? Patient reports no desire to harm self or others. Onset of symptoms was February 04, 2024. 11:15 Method Of Arrival: EMS: [facility] 11:15 Acuity: SREE 2 ph Triage Assessment: 11:15 General: Appears in no apparent distress. Behavior is calm, cooperative. Pain: Denies ph pain. Neuro: Level of Consciousness is awake, alert, obeys commands, Oriented to person, place, time, situation. Derm: Skin is pink, warm \T\ dry. Injury Description: multiple skin tears to bilateral upper extremities. Historical: - Allergies: 11:41 No Known Allergies; ph - PMHx: 11:41 colon cancer; Hyperlipidemia; Hypertension; ph - Immunization history:: Adult Immunizations unknown. - Infectious Disease History:: Denies. - Social history:: Smoking status: unknown. Screenin:38 VAN Screening: Arm Drift: Patient shows no arm weakness. Visual Disturbance: No visual es3 disturbance noted. Aphasia: No aphasia noted. Neglect: No neglect noted. 11:39 [place] Swallow Protocol Brief Cognitive Screen What is your name? Normal, Where are you es3 right now? Normal, What year is it? Normal. Oral Mechanism Examination Facial Symmetry: Normal, Motion: Normal, Lip Closure: Normal, Oral Mechanism Result: Normal. 3 oz Water Swallow Challenge: Pt able to drink all water without stopping, coughing, choking or throat clearing: No Result: FAIL Notified: Reynaldo Donohue DO. 11:42 [facility] ED Fall Risk Assessment (Adult) History of falling in the last 3 months, ph including since admission Yes- fall prone (multiple falls) (3 pts) Confusion or Disorientation No (0 pts) Intoxicated or Sedated No (0 pts) Impaired Gait Yes (1 pt) Mobility Assist Device Used No (0 pt) Altered Elimination No (0 pt) Score/Fall Risk Level 3 or more points = High Risk Oriented to surroundings, Maintained a safe environment, Hourly rounding (assess needs \T\ fall precautionary measures) done. Abuse screen: Denies threats or abuse. Denies injuries from another. Nutritional screening: No deficits noted. Tuberculosis screening: No symptoms or risk factors identified. Assessment: 11:07 Reassessment: CODE STROKE called overhead, pt taken to CT by EMS and charge nurse tyra Mora RN, accompanied by Dr Donohue. 11:25 General: Appears in no apparent distress. comfortable, slender, Behavior is calm, ph cooperative, appropriate for age. Pain: Denies pain. Neuro: Level of Consciousness is awake, alert, obeys commands, Oriented to person, place, time, situation, Mail Handler Sorter are weak on right Moves all extremities. Speech is normal, Facial droop on right, Pupils are PERRLA, Reports weakness. Cardiovascular: Capillary refill < 3 seconds in bilateral fingers Patient's skin is warm and dry. Rhythm is irregular. Respiratory: Airway is patent Respiratory effort is even, unlabored, Respiratory pattern is regular, symmetrical. GI: No signs and/or symptoms were reported involving the gastrointestinal system. Derm: Skin is fragile, is thin, Skin is pink, warm \T\ dry. Musculoskeletal: Circulation, motion, and sensation intact. 11:45 Reassessment: Patient appears in no apparent distress at this time. Patient and/or ph family updated on plan of care and expected duration. Pain level reassessed. Patient is alert, oriented x 3, equal unlabored respirations, skin warm/dry/pink. Dr Donohue at bedside to speak to pt, pt to be [place] [facility] [place] [facility]. 12:10 Reassessment: Report called to Janene PATTERSON at [facility], awaiting [facility] for transport, transfer form signed by pt's friend w/ pt's consent given. 12:34 Reassessment: [facility] at bedside, report given to flight nurse, pt transferred to [facility]. Vital Signs: 11:15 BP 135 / 98; Pulse 87; Resp 18; Temp 97.5; Pulse Ox 100% on R/A; Weight 67.13 kg; ph Height 5 ft. 10 in. ; 12:35 BP 155 / 88; Pulse 97; Resp 18; Temp 97.6; Pulse Ox 99% on R/A; Pain 0/10; ph 11:15 Body Mass Index 21.24 (67.13 kg, 177.8 cm) ph 12:35 Pain Scale: Adult ph Vitals: 11:44 Cardiac Rhythm Assessment Irregular. ph NIH Stroke Scale Scores: 11:27 NIHSS Score: 4 ms3 11:38 NIHSS Score: 4 es3 ED Course: 11:18 Patient arrived in ED. ms3 11:18 Reynaldo Donohue DO is Attending Physician. ms3 11:29 CT Head Angio In Process Unspecified. EDMS 11:29 CT Neck Angio In Process Unspecified. EDMS 11:29 CT Stroke Brain w/o Contrast In Process Unspecified. EDMS 11:34 Yary Leiva, YESENIA is Primary Nurse. ph 11:40 Triage completed. ph 11:42 Arm band placed on Patient placed in an exam room, on a stretcher, on desk monitor, ph on pulse oximetry. 11:43 Patient has correct armband on for positive identification. Placed in gown. Bed in low ph position. Call light in reach. Side rails up X2. Client placed on continuous cardiac and pulse oximetry monitoring. NIBP monitoring applied. playground monitor on. Door closed. Noise minimized. Warm blanket given. 11:44 Maintain EMS IV. Dressing intact. Good blood return noted. Site clean \T\ dry. Gauge \T\ ph site: 18G LFA. IV is patent, with fluids infusing freely, with good blood return. 11:46 No provider procedures requiring assistance completed. Patient transferred, IV remains ph in place. 11:55 Notified ED physician of a critical lab result(s). Troponin 5,763.3 Dr. Donohue. ll1 11:58 Stroke CXR 1 View In Process Unspecified. EDMS Administered Medications: No medications were administered Medication: 11:43 VIS not applicable for this client. ph Outcome: 11:51 ER care complete, transfer ordered by . ms3 12:11 Transferred by helicopter to [facility], [facility], Transfer form completed. ph X-rays sent w/ patient. 12:11 Condition: stable 12:11 Instructed on the need for transfer, 12:36 Patient left the ED. ph NIH Stroke Scale - NIH Stroke Score Date: 02/04/2024 Time: 11:27 Total Score = 4 10. Dysarthria (speech clarity - read or repeat words) - 1(Mild to Moderate) 11. Extinction and Inattention (visual/tactile/auditory/spatial/personal) - 0(No abnormality) 1a. Level of Consciousness (LOC) - 0(Alert) 1b. Level of Consciousness (LOC) (Month \T\ Age) - 0(Both) 1c. LOC Commands (Open \T\ Closes Eyes/Gig Tender) - 0(Both) 2. Best Gaze (Lateral Gaze Paresis) - 0(Normal) 3. Visual Field Loss - 0(No visual loss) 4. Facial Palsy - 2(Partial paralysis) 5a. Left Arm: Motor (10-second hold) - 0(No drift) 5b. Right Arm: Motor (10-second hold) - 0(No drift) 6a. Left Leg: Motor (5-second hold - always test supine) - 0(No drift) 6b. Right Leg: Motor (5-second hold - always test supine) - 1(Drift) 7. Limb Ataxia (finger/nose \T\ heel/mendoza - test with eyes open) - 0(Absent) 8. Sensory Loss (pinprick arms/legs/face) - 0(Normal) 9. Best Language: Aphasia (description/naming/reading) - 0(No aphasia) Initials: ms3 NIH Stroke Scale - NIH Stroke Score Date: 02/04/2024 Time: 11:38 Total Score = 4 10. Dysarthria (speech clarity - read or repeat words) - 1(Mild to Moderate) 11. Extinction and Inattention (visual/tactile/auditory/spatial/personal) - 0(No abnormality) 1a. Level of Consciousness (LOC) - 0(Alert) 1b. Level of Consciousness (LOC) (Month \T\ Age) - 0(Both) 1c. LOC Commands (Open \T\ Closes Eyes/Gig Tender) - 0(Both) 2. Best Gaze (Lateral Gaze Paresis) - 0(Normal) 3. Visual Field Loss - 0(No visual loss) 4. Facial Palsy - 2(Partial paralysis) 5a. Left Arm: Motor (10-second hold) - 0(No drift) 5b. Right Arm: Motor (10-second hold) - 0(No drift) 6a. Left Leg: Motor (5-second hold - always test supine) - 0(No drift) 6b. Right Leg: Motor (5-second hold - always test supine) - 1(Drift) 7. Limb Ataxia (finger/nose \T\ heel/mendoza - test with eyes open) - 0(Absent) 8. Sensory Loss (pinprick arms/legs/face) - 0(Normal) 9. Best Language: Aphasia (description/naming/reading) - 0(No aphasia) Initials: es3 Signatures: Dispatcher [employer] EDYary Yin, RN RN Abby Hogan, RN RN ll1 Reynaldo Donohue, DO ms3 Tracy Odell RN RN es3
--- NOTE | 2024-02-04 11:52 | EDPHYS ---
Physician Documentation [facility] Name: Jaswant Dove Age: 88 yrs Sex: Male : 1935 Arrival Date: 02/04/2024 Time: : Bed 13 Private MD: ED Physician Reynaldo Valdez HPI: 02/03 11:29 This 88 yrs old Male presents to ER via Unassigned with complaints of right sided ms3 weakness, fall. 11:29 88-year-old male with past medical history of hypertension, lung cancer, shingles ms3 presents to the emergency department for right facial droop and bilateral lower extremity weakness. EMS notes patient was last seen normal at 1:30 PM yesterday. Patient notes he awoke between 2 and 4 AM and noted he was weak and falling for the first time. EMS notes patient to have right facial droop, slurred speech, bilateral lower extremity weakness. Patient endorses fatigue. EMS vital signs blood pressure 130/80, blood glucose 180. Historical: - Allergies: 11:41 No Known Allergies; ph - PMHx: 11:41 colon cancer; Hyperlipidemia; Hypertension; ph - Immunization history:: Adult Immunizations unknown. - Infectious Disease History:: Denies. - Social history:: Smoking status: unknown. ROS: 11:29 Constitutional: Negative for fever, and chills. Neck: Negative for injury, pain, and ms3 swelling, Cardiovascular: Negative for chest pain, and palpitations. Respiratory: Negative for shortness of breath, cough, wheezing, and pleuritic chest pain, Abdomen/GI: Negative for abdominal pain, nausea, vomiting, diarrhea, and constipation, MS/Extremity: Negative for injury and deformity, Skin: Negative for injury, rash, and discoloration, 11:29 Neuro: Positive for weakness, Exam: 11:29 Radiologist reports: Negative CT without contrast per Dr Burr ms3 11:29 Constitutional: This is a well developed, well nourished patient who is awake, alert, and in no acute distress. Eyes: Pupils equal round and reactive to light, extra-ocular motions intact. Lids and lashes normal. Conjunctiva and sclera are non-icteric and not injected. Periorbital areas with no swelling, redness, or edema. Neck: Trachea midline, no cervical lymphadenopathy. Supple, full range of motion without nuchal rigidity, or vertebral point tenderness. No Meningismus. Chest/axilla: Normal chest wall appearance and motion. Nontender with no deformity. Cardiovascular: Regular rate and rhythm with a normal S1 and S2. No gallops, murmurs, or rubs. Normal PMI, no JVD. No pulse deficits. Respiratory: Lungs have equal breath sounds bilaterally, clear to auscultation and percussion. No rales, rhonchi or wheezes noted. No increased work of breathing, no retractions or nasal flaring. Abdomen/GI: Soft, non-tender, with normal bowel sounds. No distension or tympany. No guarding or rebound. No evidence of tenderness throughout. Skin: Warm, dry with normal turgor. Normal color with no rashes, no lesions, and no evidence of cellulitis. 11:29 Neuro: Orientation: to person, place, time \T\ situation. Mentation: is normal, Memory: is normal, Cerebellar function: is grossly normal, heel to mendoza testing is normal, Motor: Right lower extremity minor drift without hitting bed, Sensation: is normal, Gait: not tested. 11:51 ECG was reviewed by the Attending Physician. ms3 Vital Signs: 11:15 BP 135 / 98; Pulse 87; Resp 18; Temp 97.5; Pulse Ox 100% on R/A; Weight 67.13 kg; ph Height 5 ft. 10 in. ; 12:35 BP 155 / 88; Pulse 97; Resp 18; Temp 97.6; Pulse Ox 99% on R/A; Pain 0/10; ph 11:15 Body Mass Index 21.24 (67.13 kg, 177.8 cm) ph 12:35 Pain Scale: Adult ph NIH Stroke Scale Scores: 11:27 NIHSS Score: 4 ms3 11:38 NIHSS Score: 4 es3 MDM: 11:18 Patient medically screened. ms3 11:38 Differential diagnosis: CVA, TIA. Data reviewed: vital signs, nurses notes. ms3 Consideration of Admission/Observation Will transfer for LVO. 12:03 Management of patient was discussed with the following: Manager Rfid: Dr Huang ESPARZA; Dr marysol Smith- Neuro fellow. Independent interpretation of the following test(s) in the Emergency Department EKG: See my EKG interpretation above CT Scan: My interpretation is CT head without contrast images did not reveal ICH. Historians other than the Patient: EMS: [facility]. Care significantly affected by the following chronic conditions: Hypertension, Lung CA. Counseling: I had a detailed discussion with the patient and/or guardian regarding the historical points, exam findings, and any diagnostic results supporting the discharge/admit diagnosis, lab results, radiology results, the need to transfer to another facility, [facility] does not immediately have the required specialist. ED course: Discussed trop of 5763.[address] Kumar. 02/03 11:19 Order name: Basic Metabolic Panel; Complete Time: 11:56 ms3 02/03 11:19 Order name: CBC with Diff; Complete Time: 12:20 ms3 02/03 11:19 Order name: Hepatic Function; Complete Time: 11:56 ms3 02/03 11:19 Order name: High Sensitivity Troponin; Complete Time: 11:56 ms3 02/03 11:19 Order name: Magnesium; Complete Time: 11:56 ms3 02/03 11:19 Order name: Protime (+inr); Complete Time: 11:52 ms3 02/03 11:19 Order name: Ptt, Activated; Complete Time: 11:52 ms3 02/03 11:41 Order name: Glucose, Ancillary Testing; Complete Time: 11:52 EDMS 02/03 12:08 Order name: CBC Smear Scan; Complete Time: 12:20 EDMS 02/03 11:19 Order name: CT Head Angio; Complete Time: 11:52 ms3 02/03 11:19 Order name: CT Neck Angio; Complete Time: 11:52 ms3 02/03 11:19 Order name: CT Stroke Brain w/o Contrast; Complete Time: 11:52 ms3 02/03 11:19 Order name: Stroke CXR 1 View; Complete Time: 12:20 ms3 02/03 11:19 Order name: Accucheck; Complete Time: 11:44 ms3 02/03 11:19 Order name: Cardiac monitoring; Complete Time: 11:44 ms3 02/03 11:19 Order name: EKG - Nurse/Tech; Complete Time: 11:44 ms3 02/03 11:19 Order name: IV Saline Lock; Complete Time: 11:44 ms3 02/03 11:19 Order name: Labs collected and sent; Complete Time: 11:44 ms3 02/03 11:19 Order name: NPO; Complete Time: 11:44 ms3 02/03 11:19 Order name: O2 Per Protocol; Complete Time: 11:44 ms3 02/03 11:19 Order name: O2 Sat Monitoring; Complete Time: 11:44 ms3 02/03 11:19 Order name: Stroke Swallow Screen; Complete Time: 11:43 ms3 EC:51 Rate is 88 beats/min. Rhythm is irregularly irregular. QRS [place] is Normal. QRS interval ms3 is normal. Clinical impression: Atrial Fibrillation. Interpreted by me. Reviewed by me. Administered Medications: No medications were administered Disposition Summary: 02/04/24 11:51 Transfer Ordered Notes: Transfer Location: [facility] ms3 Reason: Higher level of care ms3 Condition: Stable ms3 Problem: new ms3 Symptoms: are unchanged ms3 Accepting Physician: Dr Encinas(02/04/24 12:36) ph Diagnosis - Ischemic Stroke- M2 occlusion ms3 Forms: - Medication Reconciliation Form ms3 - SBAR form ms3 Critical care time excluding procedures: 12:03 Critical care time: Bedside Care: 30 minutes, Consultation: 5 minutes. Total time: 35 ms3 minutes NIH Stroke Scale - NIH Stroke Score Date: 02/04/2024 Time: 11:27 Total Score = 4 10. Dysarthria (speech clarity - read or repeat words) - 1(Mild to Moderate) 11. Extinction and Inattention (visual/tactile/auditory/spatial/personal) - 0(No abnormality) 1a. Level of Consciousness (LOC) - 0(Alert) 1b. Level of Consciousness (LOC) (Month \T\ Age) - 0(Both) 1c. LOC Commands (Open \T\ Closes Eyes/Senior Branch Manager) - 0(Both) 2. Best Gaze (Lateral Gaze Paresis) - 0(Normal) 3. Visual Field Loss - 0(No visual loss) 4. Facial Palsy - 2(Partial paralysis) 5a. Left Arm: Motor (10-second hold) - 0(No drift) 5b. Right Arm: Motor (10-second hold) - 0(No drift) 6a. Left Leg: Motor (5-second hold - always test supine) - 0(No drift) 6b. Right Leg: Motor (5-second hold - always test supine) - 1(Drift) 7. Limb Ataxia (finger/nose \T\ heel/mendoza - test with eyes open) - 0(Absent) 8. Sensory Loss (pinprick arms/legs/face) - 0(Normal) 9. Best Language: Aphasia (description/naming/reading) - 0(No aphasia) Initials: ms3 NIH Stroke Scale - NIH Stroke Score Date: 02/04/2024 Time: 11:38 Total Score = 4 10. Dysarthria (speech clarity - read or repeat words) - 1(Mild to Moderate) 11. Extinction and Inattention (visual/tactile/auditory/spatial/personal) - 0(No abnormality) 1a. Level of Consciousness (LOC) - 0(Alert) 1b. Level of Consciousness (LOC) (Month \T\ Age) - 0(Both) 1c. LOC Commands (Open \T\ Closes Eyes/Senior Branch Manager) - 0(Both) 2. Best Gaze (Lateral Gaze Paresis) - 0(Normal) 3. Visual Field Loss - 0(No visual loss) 4. Facial Palsy - 2(Partial paralysis) 5a. Left Arm: Motor (10-second hold) - 0(No drift) 5b. Right Arm: Motor (10-second hold) - 0(No drift) 6a. Left Leg: Motor (5-second hold - always test supine) - 0(No drift) 6b. Right Leg: Motor (5-second hold - always test supine) - 1(Drift) 7. Limb Ataxia (finger/nose \T\ heel/mendoza - test with eyes open) - 0(Absent) 8. Sensory Loss (pinprick arms/legs/face) - 0(Normal) 9. Best Language: Aphasia (description/naming/reading) - 0(No aphasia) Initials: es3 Signatures: Dispatcher [employer] EDMS Yary Leiva, RN RN ph Reynaldo Valdez, DO ms3 Corrections: (The following items were deleted from the chart) 11:20 11:20 CT-STROKE BRAIN W/O CONTRAST+CT.RAD.BRZ ordered. EDMS EDMS 11:20 11:20 Chest Single View+RAD.RAD.BRZ ordered. EDMS EDMS 12:36 11:51 Dr Encinas ms3 ph
[2024-02-04 11:55] LABS: Troponin High Sensitivity 5763.3 pg/mL (<58.9)
[2024-02-04 12:07] LABS: White Blood Cell Scan OK (OK)
[2024-02-04 12:08] LABS: Blood Morphology Comment NOTED (NOT SEEN); Ovalocytes SLIGHT; Platelet Estimate DECR
--- NOTE | 2024-02-04 12:12 | RAD REPORT ---
EXAM DESCRIPTION: Richardt Single View02/04/2024 11:56 am CLINICAL HISTORY: stroke COMPARISON: Chest Pa And Lat (2 Views) dated 05/15/2022; Chest Pa And Lat (2 Views) dated 09/11/2019; Chest Pa And Lat (2 Views) dated 04/07/2019; CHEST PA AND LAT 2 VIEW dated 11/13/2013; Abdomen Pelvi s W Contrast dated 05/15/2022 TECHNIQUE: Portable AP view of the chest. FINDINGS: Persistent right lower lung masslike opacity. Hazy opacification in the left base, less pr onounced. No pneumothorax or effusion. The cardiomediastinal contours are unremarkable. IMPRESSION: Persistent right lower lung masslike opacity. This can be concerning for neoplasm. Hazy opacification in the left base, may relate to mild interstitial edema or pneumonitis.
[2024-02-04 13:09] VITALS: BP 155/88; TEMP 97.6; O2SAT 99
--- NOTE | 2024-02-05 11:02 | EKG ---
Test Date: 2024-02-04 Test Time: 11:26:50 Follow Up Manager: PH MEASUREMENT RESULTS: Intervals: Rate: 89 MI: 144 QRSD: 128 QT: 394 QTc: 479 [place]: P: 24 MI: 144 QRS: 72 T: 37 INTERPRETIVE STATEMENTS: Normal sinus rhythm with sinus arrhythmia Right bundle branch block Abnormal ECG Compared to ECG 01/23/2008 09:29:21 No significant changes Electronically Signed On 02-05-24 10:59:48 CDT by Sen Mckay
--- NOTE | 2024-02-05 11:02 | EKG ---
Test Date: 2024-02-04 Test Time: 11:28:39 Commercial Maintenance Technician: PH MEASUREMENT RESULTS: Intervals: Rate: 88 [place]: QRSD: 134 QT: 400 QTc: 484 [place]: P: [place]: QRS: 54 T: 29 INTERPRETIVE STATEMENTS: Atrial fibrillation Right bundle branch block Abnormal ECG Compared to ECG 02/04/2024 11:26:50 Sinus rhythm no longer present Sinus arrhythmia no longer present Electronically Signed On 02-05-24 10:59:46 CDT by Sen Mckay
== END 2024-02-04 12:36 | disposition short-term general hospital (02) ==
LOC: ER 11:13
DX: I63.512 Cerebral infarction due to unspecified occlusion or stenosis of left middle cerebral artery (principal); I10 Essential (primary) hypertension; R29.704 NIHSS score 4; W18.30XA Fall on same level, unspecified, initial encounter
CPT/HCPCS: 93005 ×2; 85025; 80048; 36415; 83735; 85610; 82947; 80076; 85730; 84484; 70496; 70498; 70450; 71045; 99285; Q9967